=== PATIENT | male | born 1985 | race Two or more races ===

== ENCOUNTER 2022-05-05 17:23 | Emergency (ER) | payer SELFPAY ==
[~2022-05-05] VITALS: Ht 180.3 cm; Wt 86.0 kg
[2022-05-05 17:25] VITALS: BP 127/77
== END 2022-05-05 21:49 | disposition left against medical advice (07) ==
LOC: ER 17:23
DX: Z53.21 Procedure and treatment not carried out due to patient leaving prior to being seen by health care provider (principal)